=== PATIENT | female | born 1950 | race Caucasian/White ===

== ENCOUNTER 2017-07-18 18:26 | Emergency (ER) | payer MEDICARE, OTHER ==
[~2017-07-18] VITALS: Ht 160 cm; Wt 79.4 kg
[~2017-07-18 18:26] MED LIST: CLON0.5T PO; LORA1TAB82 PO
--- NOTE | 2017-07-18 18:30 | NUR ---
bib self, c/o difficulty breathing, shortness of breath on inspiration hissing sound on both ears. nad noted, vss, resp even and unlabored, waiting for md luong.
[2017-07-18] MEDS ORDERED: IV NS 0.9% 500 ML BAG IV ONE (19:00)
[2017-07-18] MEDS ORDERED: LORAZEPAM INJ 2 MG/ML VIAL IV ONE (19:00)
[2017-07-18] MEDS ORDERED: LORAZEPAM INJ 2 MG/ML VIAL ONE (19:06)
[2017-07-18 19:11] LABS: BASOPHILS % (AUTO) 0.4 % (0.0-2.0); EOSINOPHILS # (AUTO) 0.4 /CMM (0.0-0.7); EOSINOPHILS % (AUTO) 4.7 % (0.0-6.0); HEMATOCRIT 38 % (33-45); HEMOGLOBIN 12.6 g/dL (11.5-14.8); LYMPHOCYTES # (AUTO) 2.8 /CMM (0.8-4.8); LYMPHOCYTES % (AUTO) 34.9 % (20.0-44.0); MEAN CORPUSCULAR HEMOGLOBIN 29 PG (26.0-33.0); MEAN CORPUSCULAR HGB CONC 33 g/dl (31.0-36.0); MEAN CORPUSCULAR VOLUME 86 fL (82-100); MONOCYTES # (AUTO) 0.5 /CMM (0.1-1.30); NEUTROPHILS # (AUTO) 4.2 /CMM (1.8-8.9); PLATELET COUNT (AUTO) 212 /CMM (150-450); RED BLOOD CELL COUNT(AUTO) 4.42 MIL/uL (4.0-5.2); WHITE BLOOD COUNT (AUTO) 7.9 K/uL (4.3-11.0)
[2017-07-18] MEDS ORDERED: FURO20TA4 PO (19:14)
[2017-07-18] MEDS ORDERED: LORA1TAB PO (19:14)
[2017-07-18 19:19] LABS: CALCIUM, SERUM 8.8 mg/dL (8.5-10.1); CARBON DIOXIDE 31 mmol/L (21-32); CHLORIDE 109 mmol/L (98-107); GLUCOSE 108 mg/dL (74-106); POTASSIUM 3.3 mmol/L (3.5-5.1); SODIUM SERUM 144 mmol/L (136-145); UREA NITROGEN, BLOOD 17 mg/dL (7-18)
[2017-07-18 19:24] LABS: INR 0.89 (0.87-1.13); PROTHROMBIN TIME 9.3 SECS (9.5-12.7)
[2017-07-18 19:27] LABS: TROPONIN I < 0.017 ng/mL (0.00-0.056)
[2017-07-18 19:32] LABS: B-TYPE NATRIURETIC PEPTIDE 63 PG/ML (0-125)
[2017-07-18] MEDS ORDERED: POTASSIUM CHLORIDE 20 MEQ TAB.PRT.SR PO ONE ×2 (19:57→20:00)
[2017-07-18 20:12] LABS: D-DIMER 0.49 mg/L(FEU (0.17-0.50)
[2017-07-18] MEDS ORDERED: ONDANSETRON 4 MG TAB.RAPDIS ONE (20:27)
[2017-07-18] MEDS ORDERED: ONDANSETRON 4 MG TAB.RAPDIS PO ONE (20:30)
[2017-07-18 21:33] VITALS: BP 122/85
== END 2017-07-18 21:34 | disposition home or self-care (01) ==
LOC: ER 18:28
DX: F41.9 Anxiety disorder, unspecified (principal); E87.6 Hypokalemia; F17.200 Nicotine dependence, unspecified, uncomplicated; Z86.73 Personal history of transient ischemic attack (TIA), and cerebral infarction without residual deficits; Z88.6 Allergy status to analgesic agent
CPT/HCPCS: 36415; 80048; 83880; 84484; 85025; 85378; 85730; 93005; 96361; 96374; 99285; A4606; J2060; J7040; Q0162; Z7610

== ENCOUNTER 2017-07-20 15:44 | Emergency (ER) | payer MEDICARE, OTHER ==
[~2017-07-20] VITALS: Ht 162.6 cm; Wt 79.4 kg
[~2017-07-20 15:44] MED LIST changes: +FURO20TA4 PO; +LORA1TAB PO
--- NOTE | 2017-07-20 15:48 | NUR ---
HEAD PRESSURE; BILATERAL FOOT SWELLING ~ 8 MONTHS. PLACED ON MONITOR. AWAITING MD ORDER
--- NOTE | 2017-07-20 16:06 | NUR ---
EKG IN PROGRESS
--- NOTE | 2017-07-20 16:15 | NUR ---
RAC #20 IV ACCESS. BLOOD SAMPLE COLLECTED SENT TO LAB
--- NOTE | 2017-07-20 16:16 | NUR ---
David matias in ED - 07/20/17 at 1636 by RG PT TAKEN TO CT
[2017-07-20 16:23] LABS: BASOPHILS # (AUTO) 0.1 /CMM (0.0-0.2); BASOPHILS % (AUTO) 0.7 % (0.0-2.0); EOSINOPHILS # (AUTO) 0.4 /CMM (0.0-0.7); EOSINOPHILS % (AUTO) 4.9 % (0.0-6.0); HEMATOCRIT 37 % (33-45); HEMOGLOBIN 12.5 g/dL (11.5-14.8); LYMPHOCYTES # (AUTO) 2.9 /CMM (0.8-4.8); LYMPHOCYTES % (AUTO) 34.5 % (20.0-44.0); MEAN CORPUSCULAR HEMOGLOBIN 29 PG (26.0-33.0); MEAN CORPUSCULAR HGB CONC 34 g/dl (31.0-36.0); MEAN CORPUSCULAR VOLUME 87 fL (82-100); MONOCYTES # (AUTO) 0.4 /CMM (0.1-1.30); MONOCYTES % (AUTO) 5.2 % (2.0-12.0); NEUTROPHILS # (AUTO) 4.5 /CMM (1.8-8.9); NEUTROPHILS % (AUTO) 54.7 % (43.0-81.0); PLATELET COUNT (AUTO) 190 /CMM (150-450); RDW COEFFICIENT OF VARIATION 13.6 (11.5-15.0); RED BLOOD CELL COUNT(AUTO) 4.25 MIL/uL (4.0-5.2); WHITE BLOOD COUNT (AUTO) 8.3 K/uL (4.3-11.0)
[2017-07-20 16:32] LABS: CALCIUM, SERUM 8.8 mg/dL (8.5-10.1); CARBON DIOXIDE 28 mmol/L (21-32); CHLORIDE 105 mmol/L (98-107); CREATININE 0.9 mg/dL (0.6-1.3); GLUCOSE 106 mg/dL (74-106); POTASSIUM 3.6 mmol/L (3.5-5.1); SODIUM SERUM 140 mmol/L (136-145); UREA NITROGEN, BLOOD 18 mg/dL (7-18)
[2017-07-20 16:36] LABS: INR 0.89 (0.87-1.13); PROTHROMBIN TIME 9.3 SECS (9.5-12.7)
--- NOTE | 2017-07-20 16:36 | NUR ---
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
--- NOTE | 2017-07-20 16:45 | NUR ---
PT REFUSING CT SCAN & CXR, DR. BROOKS IS AWARE.
[2017-07-20 16:47] LABS: TROPONIN I < 0.017 ng/mL (0.00-0.056)
[2017-07-20 16:49] LABS: ALANINE AMINOTRANSFERASE 22 U/L (12-78); ALBUMIN 3.4 g/dL (3.4-5.0); ALKALINE PHOSPHATASE 81 U/L (46-116); ASPARTATE AMINOTRANSFERASE 13 U/L (15-37); B-TYPE NATRIURETIC PEPTIDE 25 PG/ML (0-125); BILIRUBIN,DIRECT 0.1 mg/dL (0.0-0.2); BILIRUBIN,TOTAL 0.3 mg/dL (0.2-1.0)
[2017-07-20 18:04] LABS: APPEARANCE,URINE Slightly Cloudy (CLEAR); BILIRUBIN,URINE Negative (NEGATIVE); BLOOD, URINE Small Ery/uL (NEGATIVE); COLOR,URINE Yellow (YELLOW); KETONES,URINE Negative (NEGATIVE); LEUKOCYTE ESTERASE ,URINE Small (NEGATIVE); NITRITE, URINE Negative (NEGATIVE); PROTEIN,URINE Negative (NEGATIVE); UGLUCOSE Negative (NEGATIVE); UROBILINOGEN,URINE 0.2 EU/dL (0.2)
[2017-07-20 18:44] LABS: BACTERIA,URINE Few /HPF (None Seen); MUCUS,URINE Few /LPF (None Seen); SQUAMOUS EPITHELIAL CELL,UR MOD /HPF (None Seen); URINE AMORPHOUS URATE Few /HPF (None Seen)
[2017-07-20 18:56] VITALS: BP 124/84
--- NOTE | 2017-07-20 18:58 | NUR ---
Patient discharged to home in stable condition. Written and verbal after care instructions given. Patient verbalizes understanding of instruction.
== END 2017-07-20 18:57 | disposition home or self-care (01) ==
LOC: ER 15:46
DX: R51 Headache (principal); R60.0 Localized edema; F41.9 Anxiety disorder, unspecified; F17.200 Nicotine dependence, unspecified, uncomplicated; Z86.73 Personal history of transient ischemic attack (TIA), and cerebral infarction without residual deficits; Z88.6 Allergy status to analgesic agent; R79.1 Abnormal coagulation profile
CPT/HCPCS: 36415; 70450; 71010; 80048; 80076; 81001; 83880; 84484; 85025; 85730; 93005; 99285; A4606; 81000-TC; Z7610